=== PATIENT | male | born 1970 | race Caucasian/White ===

== ENCOUNTER 2023-04-02 10:19 | Emergency (ER) | payer SELFPAY ==
--- NOTE | 2023-04-02 12:05 | RAD REPORT ---
EXAM DESCRIPTION: RAD - Wrist Right 3 View - 04/02/2023 11:26 am CLINICAL HISTORY: PAIN Pain COMPARISON: No comparisons FINDINGS: Subtle widening of the scapholunate interval likely indicates tear of the underlying ligam ent, likely chronic. Mild radiocarpal arthritic changes. No foreign body or other soft tissue abnorm ality. No fracture or subluxation.
--- NOTE | 2023-04-02 12:05 | RAD REPORT ---
EXAM DESCRIPTION: RAD - Hand Right 3 View - 04/02/2023 11:26 am CLINICAL HISTORY: Pain;Swelling COMPARISON: No comparisons FINDINGS: Moderate soft tissue swelling affects the hand. No underlying bone lesion is evident. No s oft tissue gas. No fracture or radiopaque foreign body seen. Mild scattered multi joint arthritic johanne nges.
--- NOTE | 2023-04-02 12:14 | ER ---
Nurse's Notes [facility] Name: Sathish Michelle Age: 52 yrs Sex: Male : 1970 Arrival Date: 04/02/2023 Time: 10:19 Bed 12 Private MD: Diagnosis: Sprain of other part of right wrist and hand Presentation: 04/02 10:34 Chief complaint: Patient states: can't hardly close his right hand, it's swollen, can't iw hold a pen, does not remember injuring it but he did use a drill and after that it started hurting , x 2weeks. Coronavirus screen: At this time, the client does not indicate any symptoms associated with coronavirus-19. Ebola Screen: Patient negative for fever greater than or equal to 101.5 degrees Fahrenheit, and additional compatible Ebola Virus Disease symptoms Patient denies exposure to infectious person. Patient denies travel to an Ebola-affected area in the 21 days before illness onset. No symptoms or risks identified at this time. Initial Sepsis Screen: Does the patient meet any 2 criteria? No. Patient's initial sepsis screen is negative. Does the patient have a suspected source of infection? No. Patient's initial sepsis screen is negative. Risk Assessment: Do you want to hurt yourself or someone else? Patient reports no desire to harm self or others. 10:34 Method Of Arrival: Ambulatory iw 10:34 Acuity: CJ 4 iw Historical: - Allergies: 10:37 No Known Allergies; iw - Home Meds: 10:38 None [Active]; iw - PMHx: 10:38 None; iw - Immunization history:: Adult Immunizations. - Social history:: Smoking status: Patient reports use of chewing tobacco. Screenin:02 [facility] ED Fall Risk Assessment (Adult) History of falling in the last 3 months, ld1 including since admission No falls in past 3 months (0 pts). Abuse screen: Denies threats or abuse. Denies injuries from another. Nutritional screening: No deficits noted. Tuberculosis screening: No symptoms or risk factors identified. Assessment: 11:02 Reassessment: See triage assessment. General: Appears in no apparent distress. ld1 comfortable, Behavior is calm, cooperative, appropriate for age. Pain: Complains of pain in right hand Pain does not radiate. Pain currently is 8 out of 10 on a pain scale. Neuro: Level of Consciousness is awake, alert, obeys commands, Oriented to person, place, time, situation. Cardiovascular: Capillary refill < 3 seconds Patient's skin is warm and dry. Respiratory: Airway is patent Respiratory effort is even, unlabored. GI: Abdomen is flat, non-distended. : No signs and/or symptoms were reported regarding the genitourinary system. Musculoskeletal: Reports pain in right hand. Vital Signs: 10:34 BP 173 / 93; Pulse 74; Resp 16; Temp 98.3; Pulse Ox 96% on R/A; iw 11:02 BP 169 / 88; Pulse 71; Resp 16; Pulse Ox 98% on R/A; Pain 8/10; ld1 11:02 Pain Scale: Adult ld1 ED Course: 10:25 Patient arrived in ED. kj1 10:27 [facility] Cotto F[facility] 7 10:27 Darell Rodriguez MD is Attending Physician. 7 10:37 Triage completed. iw 10:37 Arm band placed on. iw 11:02 Candace Alvarado, RN is Primary Nurse. ld1 11:02 Patient has correct armband on for positive identification. Placed in gown. Bed in low ld1 position. Call light in reach. Side rails up X2. Pulse ox on. NIBP on. Door closed. Noise minimized. Warm blanket given. 11:02 No provider procedures requiring assistance completed. ld1 11:27 XRAY Hand RIGHT 3 View In Process Unspecified. EDMS 11:27 XRAY Wrist RIGHT 3 view In Process Unspecified. EDMS Administered Medications: 12:27 Drug: Ketorolac IM 60 mg Route: IM; Site: right deltoid; ld1 12:27 Drug: HYDROcodone-acetaminophen PO 5 mg-325 mg 1 tabs Route: PO; ld1 Medication: 11:02 VIS not applicable for this client. ld1 Outcome: 12:13 Discharge ordered by . [facility] 12:58 Patient left the ED. [facility] Signatures: Dispatcher [employer] EDMS Rocio Lynn RN RN Lizbeth Tolentino kj1 Candace Alvarado RN RN [facility] Taylor Lujan RN RN [facility] Shira Cotto FNP [employer] [facility] Corrections: (The following items were deleted from the chart) 10:37 10:37 Home Meds: None; iw iw
--- NOTE | 2023-04-02 12:14 | EDPHYS ---
Physician Documentation [facility] Name: Sathish Michelle Age: 52 yrs Sex: Male : 1970 Arrival Date: 04/02/2023 Time: 10:19 Bed 12 Private MD: ED Physician Darell Rodriguez HPI: 04/02 10:35 This 52 yrs old Male presents to ER via Ambulatory with complaints of Hand Injury. jh7 10:35 The patient or guardian reports decreased range of motion, pain, swelling. jh7 11:03 The complaints affect the right hand diffusely. Onset: The symptoms/episode jh7 began/occurred 2 week(s) ago. 52-year-old male presents with right hand pain and swelling for the past 2 weeks. Reports that symptoms started after using a drill 2 weeks ago. Reports diffuse swelling and pain with flexion and extension of the wrist and grasping motions. Denies any other symptoms at this time.. Historical: - Allergies: 10:37 No Known Allergies; iw - Home Meds: 10:38 None [Active]; iw - PMHx: 10:38 None; iw - Immunization history:: Adult Immunizations. - Social history:: Smoking status: Patient reports use of chewing tobacco. ROS: 11:03 Constitutional: Negative for fever, chills, and weight loss, Eyes: Negative for injury, jh7 pain, redness, and discharge, Neck: Negative for injury, pain, and swelling, Cardiovascular: Negative for chest pain, palpitations, and edema, Respiratory: Negative for shortness of breath, cough, wheezing, and pleuritic chest pain, Back: Negative for injury and pain, Skin: Negative for injury, rash, and discoloration, Neuro: Negative for headache, weakness, numbness, tingling, and seizure. 11:03 MS/extremity: Positive for decreased range of motion, pain, swelling, of the right hand. 11:03 All other systems are negative. Exam: 11:03 Constitutional: This is a well developed, well nourished patient who is awake, alert, jh7 and in no acute distress. Neck: Trachea midline, no thyromegaly or masses palpated, and no cervical lymphadenopathy. Supple, full range of motion without nuchal rigidity, or vertebral point tenderness. No Meningismus. Cardiovascular: Regular rate and rhythm with a normal S1 and S2. No gallops, murmurs, or rubs. Normal PMI, no JVD. No pulse deficits. Respiratory: Lungs have equal breath sounds bilaterally, clear to auscultation and percussion. No rales, rhonchi or wheezes noted. No increased work of breathing, no retractions or nasal flaring. Skin: Warm, dry with normal turgor. Normal color with no rashes, no lesions, and no evidence of cellulitis. Neuro: Awake and alert, GCS 15, oriented to person, place, time, and situation. Sensory grossly intact. Normal gait. 11:03 Musculoskeletal/extremity: ROM: limited active range of motion due to pain, in the right hand, Circulation is intact in all extremities. Sensation intact. Diffuse swelling of the right hand. Pain elicited with flexion and extension of the wrist. Reports pain over the distal radius and ulna with grasping movements as well. No TTP.. Vital Signs: 10:34 BP 173 / 93; Pulse 74; Resp 16; Temp 98.3; Pulse Ox 96% on R/A; iw 11:02 BP 169 / 88; Pulse 71; Resp 16; Pulse Ox 98% on R/A; Pain 8/10; ld1 11:02 Pain Scale: Adult ld1 MDM: 10:27 Patient medically screened. [facility] 12:30 Differential diagnosis: closed fracture, contusion, tendonitis, Arthritis, sprain, jh7 strain. Data reviewed: vital signs, nurses notes. I considered the following discharge prescriptions or medication management in the emergency department Medications were administered in the Emergency Department. See MAR. Counseling: I had a detailed discussion with the patient and/or guardian regarding: the historical points, exam findings, and any diagnostic results supporting the discharge/admit diagnosis, to return to the emergency department if symptoms worsen or persist or if there are any questions or concerns that arise at home. Counseling: I had a detailed discussion with the patient and/or guardian regarding: the need for outpatient follow up, a orthopedic surgeon. Response to treatment: the patient's symptoms have mildly improved after treatment. 04/02 10:39 Order name: XRAY Hand RIGHT 3 View; Complete Time: 12:07 [facility] 04/02 10:39 Order name: XRAY Wrist RIGHT 3 view; Complete Time: 12: [facility] Administered Medications: 12:27 Drug: Ketorolac IM 60 mg Route: IM; Site: right deltoid; ld1 12:27 Drug: HYDROcodone-acetaminophen PO 5 mg-325 mg 1 tabs Route: PO; ld1 Disposition Summary: 04/02/23 12:13 Discharge Ordered Location: Home [facility] Problem: new [facility] Symptoms: are unchanged [facility] Condition: Stable [facility] Diagnosis - Sprain of other part of right wrist and hand [facility] Followup: [facility] - With: Private Physician - When: 2 - 3 days - Reason: Recheck today's complaints Discharge Instructions: - Discharge Summary Sheet [facility] - Wrist Sprain, Adult [facility] Forms: - Medication Reconciliation Form [facility] - Thank You Letter [facility] Prescriptions: - Zanaflex 4 mg Oral Tablet - take 1 tablet by ORAL route every 8 hours As needed; 20 tablet; Refills: 0, [facility] Product Selection Permitted - Medrol (Andi) 4 mg Oral Tablets, Dose Pack - take 1 tablet by ORAL route as directed - follow package instructions; 1 [facility] packet; Refills: 0, Product Selection Permitted Signatures: Dispatcher [employer] Rocio Shirley, MARIANGEL AUGUST Candace Alvarado RN RN ld1 Shira Cotto, COMMUNITY MANAGER COMMUNITY MANAGER 7 Corrections: (The following items were deleted from the chart) 10:37 10:37 Home Meds: None; [facility] 11:05 10:35 The patient or guardian reports decreased range of motion, pain, swelling, [place] [id number]
[2023-04-02] MEDS ORDERED: KETOROLAC 30 MG/ML INJ ONE (12:30)
[2023-04-02] MEDS ORDERED: HYDROCODONE/APAP 5/325 MG TAB ONE (12:30)
[2023-04-02 13:05] VITALS: TEMP 98.3
[2023-04-02 13:06] VITALS: BP 169/88; O2SAT 98
== END 2023-04-02 12:58 | disposition home or self-care (01) ==
LOC: ER 10:19
DX: S63.8X1A Sprain of other part of right wrist and hand, initial encounter (principal)